=== PATIENT | female | born 1995 | race American Indian/Alaskan Native ===

== ENCOUNTER 2020-06-13 17:35 | Outpatient (CLI) | payer OTHER ==
[2020-06-13 18:46] VITALS: BP 120/75
[2020-06-13] MEDS ORDERED: LACTATED RINGERS 1,000 ML ONE (18:48)
[2020-06-13 19:09] LABS: Bacteria,Urine 1+ /HPF (Negative); Bilirubin,Urine NEG (Negative); Blood,Urine NEG (Negative); Color,Urine Amber (Yellow); Mucus,Urine 2+ /HPF
[2020-06-13] MEDS ORDERED: LACTATED RINGERS 1,000 ML IV SCH (20:00)
== END 2020-06-13 20:45 | disposition home or self-care (01) ==
LOC: EDSTATUS 18:07 → APU 18:14 → TRG 18:14
PROVIDERS: ATTEND Obstetrics & Gynecology
DX: O26.853 Spotting complicating pregnancy, third trimester (principal); O99.513 Diseases of the respiratory system complicating pregnancy, third trimester; J45.909 Unspecified asthma, uncomplicated; Z3A.28 28 weeks gestation of pregnancy
CPT/HCPCS: 59025; 81001; 87086; 96360; 96361; J7120

== ENCOUNTER 2020-06-16 15:25 | Outpatient (CLI) | payer OTHER ==
[2020-06-16] MEDS ORDERED: LACTATED RINGERS 1,000 ML IV SCH (17:00)
[2020-06-16] MEDS ORDERED: ACETAMINOPHEN 500 MG TAB PO ONE (17:23)
[2020-06-16 19:38] LABS: Bilirubin,Urine NEG (Negative); Blood,Urine NEG (Negative); Color,Urine Amber (Yellow); Mucus,Urine 3+ /HPF
== END 2020-06-16 20:33 | disposition home or self-care (01) ==
LOC: TRG 15:25 → APU 15:26 → TRG 20:33
PROVIDERS: ATTEND Obstetrics & Gynecology
DX: O26.893 Other specified pregnancy related conditions, third trimester (principal); R10.2 Pelvic and perineal pain; O47.03 False labor before 37 completed weeks of gestation, third trimester; O99.513 Diseases of the respiratory system complicating pregnancy, third trimester; J45.909 Unspecified asthma, uncomplicated; Z3A.29 29 weeks gestation of pregnancy
CPT/HCPCS: 81001; 96360; 96361; J7120

== ENCOUNTER 2020-08-10 23:45 | Observation (INO) | payer OTHER ==
[2020-08-11] MEDS ORDERED: LACTATED RINGERS 1,000 ML IV SCH (00:30)
[2020-08-11] MEDS ORDERED: ePHEDrine SULFATE 50 MG/1 ML INJ IV PRN (00:30)
[2020-08-11] MEDS ORDERED: CARBOPROST TROMETHAMINE 250 MCG/1 ML INJ IM PRN (00:30)
[2020-08-11] MEDS ORDERED: fentaNYL 100 MCG/2 ML INJ IV PRN (00:30)
[2020-08-11] MEDS ORDERED: OXYTOCIN 10 UNIT/1 ML INJ IM PRN (00:30)
[2020-08-11] MEDS ORDERED: LIDOCAINE (2%) 20 MG/1 ML VIAL 20 ML MDV INFILTRATI ONE (00:30)
[2020-08-11] MEDS ORDERED: AMPICILLIN/NS 2 GM/100 ML 2 GM/100 ML BAG IV ONE (00:30)
[2020-08-11] MEDS ORDERED: METHYLERGONOVINE MALEATE 0.2 MG/ML VIAL IM PRN (00:30)
[2020-08-11] MEDS ORDERED: BUTORPHANOL 2 MG/1 ML INJ IV PRN ×2 (00:30)
[2020-08-11] MEDS ORDERED: ONDANSETRON 4 MG/2 ML INJ IV PRN ×2 (00:30→08:00)
[2020-08-11] MEDS ORDERED: TERBUTALINE 1 MG/1 ML INJ SUB-Q PRN (00:30)
[2020-08-11] MEDS ORDERED: MINERAL OIL 30 ML ORAL LIQD PO PRN (00:30)
[2020-08-11] MEDS ORDERED: ACETAMINOPHEN 500 MG TAB PO PRN (00:48)
[2020-08-11] MEDS ORDERED: OXYTOCIN DRIP 30 UNITS/500 ML BAG IV SCH ×2 (01:00)
[2020-08-11 01:13] LABS: Hematocrit 37.4 % (30.3-42.9); Hemoglobin 12.5 gm/dl (10.1-14.3); Mean Corpuscular HGB Conc 34 % (30-34); Mean Corpuscular Volume 80 fl (79-97); Platelet Count 310 K/mm3 (140-440); Red Blood Count 4.68 M/mm3 (3.65-5.03)
--- NOTE | 2020-08-11 02:42 | History and Physical Report ---
History of Present Illness Date of examination: 08/11/20 Date of admission: 08/11/20 00:30 Chief complaint: Labor History of present illness: EDC Calculations LMP: 08/31/2020 EDC Confirmation: 08/31/2020 Gestational Age: 14 2/7 weeks Past History : 4 Term Births: 1 Premature Births: 1 Living Children: 2 Para: 2 Mult. Births: 0 Prev : 0 Prev. attempt? 0 Aborta: 1 Elect. Ab: 0 Spont. Ab: 1 Ectopics: 0 # 1 Delivery date: 2012 Weeks Gestation: 40 labor: no Delivery type: Sex: Male weight: 6-12 # 2 Delivery date: 2014 Weeks Gestation: 8 Delivery type: SAB # 3 Delivery date: 2017 Weeks Gestation: 36 labor: yes Delivery type: Sex: Male weight: 6-0 Risk Factors: Smoked Tobacco Use: Never smoker Smokeless Tobacco Use: Never Passive smoke exposure: no Drug use: no HIV high-risk behavior: no Caffeine use: 0 drinks per day Alcohol use: no Exercise: no Seatbelt use: preg-counselor camp % Dietary Counseling: pn yes Past Medical History: Asthma - last attack 01/2020 - uses inhaler Past Surgical History: Negative Past Surgical History General Comments - FH: Mother - HTN Social History: Patient is single Smoking History: Patient has never smoked. 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 Infection History Hx of STD: chlamydia HIV Risk Eval: no Hepatitis B Risk Eval: low risk Personal hx. of genital herpes: no Rash, Viral, or Febrile illness since last LMP? no Varicella/Chicken Pox Status: Immunized TB Risk: no Genetic History Congenital Heart Defect: Mom: no Dad: no Guillermina Disease: Mom: no Dad: no Thalassemia Mom: no Dad: no Neural Tube Defect Mom: no Dad: no Down's Syndrome Mom: no Dad: no Chava-Sachs Mom: no Dad: no Sickle Cell Disease/Trait Mom: no Dad: no Hemophilia Mom: no Dad: no Muscular Dystrophy Mom: no Dad: no Cystic Fibrosis Mom: no Dad: no Kalli Chorea Mom: no Dad: no Mental Retardation Mom: no Dad: no Fragile X Mom: no Dad: no Other Genetic/Chromosomal Disorder Mom: no Dad: no Child w/other defect Mom: no Dad: no Enviromental Exposures Enviromental Exposures Reviewed Xray Exposure: no Medication, drug, or alcohol use since LMP: no Chemical/Other Exposure: no Exposure to Cat Liter: no Hx of Parvovirus (Fifth Disease): no Occupational Exposure to Children: none Comments: unemployed Active Medications (reviewed today): None Current Allergies (reviewed today): * GRISEOFULVIN (Critical) Past History - Obstetrical History Expected Date of Delivery: 08/31/20 Actual Gestation: 37 Week(s) 1 Day(s) : 4 Medications and Allergies Allergies Allergy/AdvReac Type Severity Reaction Status Date / Time griseofulvin AdvReac Intermediate Anaphylaxis Verified 06/13/20 18:48 Home Medications Medication Instructions Recorded Confirmed Last Taken Type Vitamin 1 tab PO DAILY 08/10/20 08/10/20 1 Day Ago History ~08/09/20 Active Meds: Active Medications Acetaminophen (Acetaminophen 500 Mg Tab) 1,000 mg PO Q6H PRN PRN Reason: Pain, Mild (1-3) Butorphanol Tartrate (Butorphanol 2 Mg/1 Ml Inj) 2 mg IV Q2H PRN PRN Reason: Pain , Severe (7-10) Butorphanol Tartrate (Butorphanol 2 Mg/1 Ml Inj) 1 mg IV Q2H PRN PRN Reason: Pain, Moderate(4-6) LABOR PAIN Carboprost Tromethamine (Carboprost Tromethamine 250 Mcg/1 Ml Inj) 250 mcg IM ONCE PRN PRN Reason: Uterine Bleeding Ephedrine Sulfate (Ephedrine Sulfate 50 Mg/1 Ml Inj) 10 mg IV Q2M PRN PRN Reason: Hypotension Fentanyl (Fentanyl 100 Mcg/2 Ml Inj) 100 mcg IV ONCE PRN PRN Reason: Pain,Severe (7-10) LABOR PAIN Last Admin: 08/11/20 02:05 Dose: 100 mcg Documented by: Oxytocin/Sodium Chloride (Pitocin/Ns 30 Unit/500ml) 30 units in 500 mls @ 2 mls/hr IV TITR [facility]; Protocol Lactated Ringer's (Lactated Ringers) 1,000 mls @ 125 mls/hr IV DIRECT [facility] Last Admin: 08/11/20 00:45 Dose: 125 mls/hr Documented by: Oxytocin/Sodium Chloride (Pitocin/Ns 30 Unit/500ml) 30 units in 500 mls @ 40 mls/hr IV TITR [facility]; Protocol Ampicillin Sodium (Ampicillin/Ns 1 Gm/50 Ml) 1 gm in 50 mls @ 100 mls/hr IV Q4H [facility]; Protocol Methylergonovine Maleate (Methylergonovine Maleate 0.2 Mg/Ml Vial) 0.2 mg IM ONCE PRN PRN Reason: Uterine Bleeding Mineral Oil (Mineral Oil 30 Ml Oral Liqd) 30 ml PO QHS PRN PRN Reason: Constipation Ondansetron HCl (Ondansetron 4 Mg/2 Ml Inj) 4 mg IV Q8H PRN PRN Reason: Nausea And Vomiting Oxytocin (Oxytocin 10 Unit/1 Ml Inj) 10 unit IM ONCE PRN PRN Reason: Uterine Bleeding Terbutaline Sulfate (Terbutaline 1 Mg/1 Ml Inj) 0.25 mg SUB-Q ONCE PRN PRN Reason: Hyperstimulation/Hypertonicity Review of Systems All systems: negative Genitourinary: contractions - Vital Signs Vital signs: Vital Signs Temp Pulse Resp BP 98.5 F 106 H 20 128/89 08/10/20 23:59 08/10/20 23:59 08/10/20 23:59 08/10/20 23:59 Temp Pulse Resp BP Pulse Ox 98.5 F 69 20 119/79 98 08/11/20 01:29 08/11/20 02:38 08/11/20 02:05 08/11/20 01:19 08/11/20 02:38 - Physical Exam Breasts: Positive: deferred Cardiovascular: Regular rate Lungs: Positive: Normal air movement Abdomen: Positive: soft. Negative: tenderness Genitourinary (Female): Positive: normal external genitalia, normal perenium Vulva: both: normal Uterus: Positive: enlarged. Negative: tender Anus/Rectum: Positive: normal perianal skin Extremities: Positive: normal Deep Tendon Reflex Grade: Normal +2 - Obstetrical FHR: category 1 Cervical Dilatation: 5.5 Cervical Effacement Percentage: 90 station: -1 Uterine Contraction Frequency (min): 3-4 Uterine Contraction Pattern: Regular Results Result Diagrams: 08/11/20 00:30 Abnormal lab results 08/11/20 Range/Units 00:30 MCH 27 L (28-32) pg All other labs normal. Assessment and Plan Anticipate vaginal delivery - Patient Problems (1) 37 weeks gestation of Current Visit: Yes Status: Acute (2) Active labor at term Current Visit: Yes Status: Acute
--- NOTE | 2020-08-11 03:47 | Procedure Note ---
OB Delivery Note - Delivery Date of Delivery: 08/11/20 Estimated blood loss: 200cc - Vaginal Delivery presentation: vertex Delivery position: OA Intrapartum events: precipitous labor- <3hr Delivery monitor: external FHT, external uterine Route of delivery: Delivery placenta: spontaneous (intact) Episiotomy: none Delivery laceration: none Anesthesia: intravenous - Infant A at 1 minute: 8 at 5 minutes: 9 Infant Gender: Male (5lbs 3oz)
[2020-08-11] MEDS ORDERED: AMPICILLIN/NS 1 GM/50 ML 1 GM/50 ML BAG IV SCH (05:00)
[2020-08-11] MEDS ORDERED: IBUPROFEN 600 MG TAB PO PRN (05:38)
--- NOTE | 2020-08-11 05:42 | Event Note ---
Date: 08/11/20 (2hr ) Pt req medication for cramping. No other c/o voiced. "These sam crackers are the best." ASHLEY AVILA @ [facility] mod. Continue PP pathway.
[2020-08-11] MEDS ORDERED: HYDROcodone/ACETAMINOPHEN 5-325 MG TAB PO SCH (07:30)
[2020-08-11] MEDS ORDERED: PROMETHAZINE 25 MG TAB PO PRN (08:00)
[2020-08-11] MEDS ORDERED: PROMETHAZINE 25 MG RECT SUPP PR PRN (08:00)
[2020-08-11] MEDS ORDERED: WITCH HAZEL/ GLYCERIN PAD TP PRN (08:00)
[2020-08-11] MEDS ORDERED: diphenhydrAMINE 25 MG CAP PO PRN (08:00)
[2020-08-11] MEDS ORDERED: LANOLIN/ZINC/DIMETHICONE (LANSINOH) 7 GM TP PRN (08:00)
[2020-08-11 16:17] LABS: Hematocrit 32.8 % (30.3-42.9)
[2020-08-11] MEDS: IBUPROFEN 600 MG TAB PO SCH ×2 (18:53→23:54)
[2020-08-11] MEDS ORDERED: MAGNESIUM HYDROXIDE (MOM) ORAL LIQD UDC PO PRN (22:00)
[2020-08-12] MEDS: IBUPROFEN 600 MG TAB PO SCH ×3 (06:30→20:19)
[2020-08-12] MEDS ORDERED: DIPHtheria,PERTUSSIS(ACELL),TETANUS VACCINE/PF 0.5 ML VIAL IM ONE (07:00)
--- NOTE | 2020-08-12 08:29 | Discharge Summary ---
Providers - Providers Date of Admission: 08/11/20 00:30 Date of discharge: 08/12/20 (Pt desires to go home. ) Attending physician: RAMIRO ANN 08/11/20 06:55 Consult to Digital Color Press Operator [CONS] Routine Reason For Exam: assistance with , SNS Primary care physician: RAMIRO ANN Hospitalization Reason for admission: active labor Delivery: Episiotomy: none Laceration: none complications: none Discharge diagnosis: IUP at term delivered baby: male Hospital course: S: Pt doing well. Voiding, ambulating, and passing flatus okay. BC: Pills. O: VSS. Fundus firm, minimal bleeding noted. Adequate I&O's. A: 25 y.o. s/p @ term, in good condition to be discharged home. P: Discharge home with instructions. Pt to schedule visit in 4 weeks. Condition at discharge: Good Disposition: DC-01 TO HOME OR SELFCARE Plan - Discharge Medications Prescriptions: Lidocain2.5%/Prilocai2.5% [Emla] 5 gm TP ONCE #1 tube - Provider Discharge Summary Activity: routine, no sex for 6 weeks, no heavy lifting 4 weeks, no strenuous exercise Diet: routine Instructions: routine Additional instructions: [] Smoking cessation referral if applicable(refer to patient education folder for contact #) [] Refer to [facility] Booklet Call your doctor immediately for: * Fever > 100.5 * Heavy vaginal bleeding ( >1 pad per hour) * Severe persistent headache * Shortness of breath * Reddened, hot, painful area to leg or breast * Drainage or odor from incision. * Keep incision clean and dry at all times and follow doctor's instructions regarding bathing/showering Congratulations! Please schedule you son's circumcision appointment in 1 week. You have been prescribed EMLA cream. Please do not use this cream at home, but bring it with you to your son's circumcision appointment. If you have any questions or concerns after discharge, please do not hesitate to call the office at [phone]. - Follow up plan Follow up: RAMIRO ANN MD [Primary Care Provider] - 7 Days
[2020-08-12] MEDS ORDERED: GABAPENTIN 300 MG CAP PO ONE (22:47)
[2020-08-12] MEDS: ACETAMINOPHEN 500 MG TAB PO PRN (23:04)
[2020-08-13] MEDS: IBUPROFEN 800 MG TAB PO PRN ×2 (03:35→10:19)
[2020-08-13] MEDS: ACETAMINOPHEN 500 MG TAB PO PRN (12:47)
[2020-08-13 15:01] VITALS: BP 114/80
== END 2020-08-13 15:46 | disposition home or self-care (01) ==
LOC: TRG 23:45 → APU 23:47 → TRG 08-11 00:30 → LD 08-11 00:30 → OB 08-11 06:58
PROVIDERS: ADMIT Obstetrics & Gynecology; ATTEND Obstetrics & Gynecology
DX: U07.1 COVID-19 (principal); O80 Encounter for full-term uncomplicated delivery; Z37.0 Single live birth; Z3A.37 37 weeks gestation of pregnancy
CPT/HCPCS: 36415; 59025; 59409; 85014; 85018; 85027; 86592; 86850; 86900; 86901; 87806; 96365; 96372; 96375; A6250; G0378; J0290; J2590; J3010; J7120; U0003; 96360; 96374